=== PATIENT | female | born 1960 | race Caucasian/White ===

== ENCOUNTER 2016-12-20 10:44 | Outpatient (CLI) | payer BC | END 2016-12-20 19:49 | disposition home or self-care (01) | LOC: SMA 10:44 | PROVIDERS: ATTEND Internal Medicine | DX: Z12.31 Encounter for screening mammogram for malignant neoplasm of breast (principal) | CPT/HCPCS: 77067; G0202 ==

== ENCOUNTER 2016-12-29 10:13 | Outpatient (CLI) | payer BC | END 2016-12-29 18:22 | disposition home or self-care (01) | LOC: SMA 10:13 | PROVIDERS: ATTEND Internal Medicine | DX: N60.01 Solitary cyst of right breast (principal) | CPT/HCPCS: 76642; G0206 ×2 ==

== ENCOUNTER 2017-06-13 07:54 | Outpatient (CLI) | payer BC | END 2017-06-13 20:50 | disposition home or self-care (01) | LOC: SMA 07:54 | PROVIDERS: ATTEND Internal Medicine | DX: N63 Unspecified lump in breast (principal) | CPT/HCPCS: 76642; G0206 ==

== ENCOUNTER 2017-10-12 08:50 | Outpatient (CLI) | payer BC | END 2017-10-12 21:20 | disposition home or self-care (01) | LOC: SUS 08:50 | PROVIDERS: ATTEND Internal Medicine | DX: N63.10 Unspecified lump in the right breast, unspecified quadrant (principal) | CPT/HCPCS: 76642 ==

== ENCOUNTER 2019-03-25 08:25 | Outpatient (CLI) | payer BC | END 2019-03-25 21:07 | disposition home or self-care (01) | LOC: SMA 08:25 | PROVIDERS: ATTEND Internal Medicine | DX: Z12.31 Encounter for screening mammogram for malignant neoplasm of breast (principal); N60.01 Solitary cyst of right breast | CPT/HCPCS: 76642; 77067 ==

== ENCOUNTER 2020-09-13 09:44 | Outpatient (CLI) | payer BC | END 2020-09-13 21:08 | disposition home or self-care (01) | LOC: SMA 09:44 | DX: N60.01 Solitary cyst of right breast (principal); N60.02 Solitary cyst of left breast; R92.2 Inconclusive mammogram | CPT/HCPCS: 76641; 77066 ==

== ENCOUNTER 2021-09-21 08:57 | Outpatient (CLI) | payer BC | END 2021-09-21 19:05 | disposition home or self-care (01) | LOC: SMA 08:57 | PROVIDERS: ATTEND Internal Medicine | DX: R92.2 Inconclusive mammogram (principal) | CPT/HCPCS: 76641; 77066 ==